=== PATIENT | female | born 1990 | race African-American/Black ===

== ENCOUNTER 2024-03-21 08:14 | Emergency (ER) | payer OTHER ==
[~2024-03-21] VITALS: Ht 160 cm; Wt 74.8 kg
[2024-03-21] MEDS: ONDANSETRON HCL INJ 2MG/ML 2ML 2 MG/ML VIAL IV STA (09:40)
[2024-03-21] MEDS: SODIUM CHLORIDE 0.9% 1000ML 1,000 ML IV STA (09:40)
[2024-03-21] MEDS: KETOROLAC TROMETHAMINE 30 MG/ML VIAL IV STA (09:41)
[2024-03-21] MEDS: ACETAMINOPHEN 325 MG TAB PO ONE (09:41)
[2024-03-21 11:03] VITALS: PULSE 76; RESP 16; TEMP 98.9; O2SAT 99
[2024-03-21] MEDS ORDERED: CEFUROXIME500 MG PO (11:10)
[2024-03-21] MEDS ORDERED: ONDANSETRON HCL4 MG PO (11:17)
== END 2024-03-21 11:20 | disposition home or self-care (01) ==
LOC: FSED 08:24
DX: R50.9 Fever, unspecified (principal); N39.0 Urinary tract infection, site not specified; R30.0 Dysuria; R11.2 Nausea with vomiting, unspecified; D64.9 Anemia, unspecified
CPT/HCPCS: 80053; 81003; 81025; 85025; 99283; J0696; J1885; J2405; J7030

== ENCOUNTER 2024-03-23 15:11 | Emergency (ER) | payer OTHER ==
[~2024-03-23] VITALS: Ht 160 cm; Wt 75.9 kg
[~2024-03-23 15:11] MED LIST: CEFUROXIME500 MG PO; ONDANSETRON HCL4 MG PO
[2024-03-23 15:15] VITALS: PULSE 78; RESP 16; TEMP 98; O2SAT 100
[2024-03-23] MEDS: CEFTRIAXONE 1 GM VIAL IM ONE (16:04)
[2024-03-23] MEDS ORDERED: IBUPROFEN200 MG PO (16:09)
[2024-03-23] MEDS ORDERED: VALACYCLOVIR500 MG PO (16:09)
[2024-03-23] MEDS ORDERED: NEURONTIN100 MG PO (16:09)
[2024-03-23] MEDS: ACETAMINOPHEN 325 MG TAB PO ONE (16:13)
[2024-03-23] MEDS: AZITHROMYCIN 250 MG TAB PO ONE (16:13)
== END 2024-03-23 16:19 | disposition home or self-care (01) ==
LOC: FSED 15:22
DX: R30.0 Dysuria (principal); A60.00 Herpesviral infection of urogenital system, unspecified; N39.0 Urinary tract infection, site not specified
CPT/HCPCS: 87086; 99283